=== PATIENT | female | born 1960 | race Caucasian/White ===

== ENCOUNTER 2018-03-28 09:16 | Emergency (ER) | payer OTHER ==
[~2018-03-28] VITALS: Ht 170.2 cm; Wt 103.4 kg
[~2018-03-28 09:16] MED LIST: ACID CONTROL150 MG PO; AVAPRO150 MG PO; FISH OIL 1,0001 EAC3 PO; MACROBID 100 M100 MG PO; OMEPRAZOLE20 M1 PO; VITAMIN D2000 UNIT PO
[2018-03-28] MEDS ORDERED: METOPROLOL SUCC50 MG PO (10:32)
[2018-03-28] MEDS ORDERED: TIROSINT50 MCG PO (10:32)
[2018-03-28] MEDS ORDERED: ULTRAM50 MG PO (13:35)
[2018-03-28] MEDS ORDERED: CYCLOBENZAPRINE5 MG PO (13:35)
== END 2018-03-28 14:10 | disposition home or self-care (01) ==
LOC: ED 09:16
DX: K44.9 Diaphragmatic hernia without obstruction or gangrene (principal); I10 Essential (primary) hypertension; Z85.3 Personal history of malignant neoplasm of breast; Z88.0 Allergy status to penicillin; Z88.2 Allergy status to sulfonamides; Z88.1 Allergy status to other antibiotic agents; Z79.899 Other long term (current) drug therapy
CPT/HCPCS: 74177; 80053; 81001; 83690; 85025; 96361; 96374; 96375; 99284-25; J1885; J2405; J7030; Q9967

== ENCOUNTER 2020-12-30 07:06 | Day surgery (SDC) | payer OTHER ==
[~2020-12-30] VITALS: Ht 170.2 cm; Wt 107.8 kg
[~2020-12-30 07:06] MED LIST changes: +ASHWAGANDHA RO300 MG PO; +CHOLINE SR300 MG PO; +CYCLOBENZAPRINE5 MG PO; +GREEN TEA1 EACH PO; +L-METHYL-B6-B11 EACH PO; +METOPROLOL SUCC50 MG PO; +OSTERA TABLET1 EACH PO; +PROBIOTIC 5 BI1 EACH PO; +SUPER ANTIOXID1 EACH PO; +TIROSINT50 MCG PO; +TURMERIC500 M2 PO; +TYLENOL EXTRA500 MG PO; +ULTRAM50 MG PO; +WAL-ZYR10 MG PO; +[UNRECOGNIZED DRUG - OTHER]; +[UNRECOGNIZED DRUG - OTHER] PO; +[UNRECOGNIZED DRUG - OTHER] PO
--- NOTE | 2020-12-30 09:38 | NUR ---
12/30/20 0938 Mary Harper 0976-PATIENT ARRIVED TO PACU ON 6L MASK RR EVEN. PATIENT REACTIVE TO VERBAL STIMULI FOLLOWS COMMANDS DENIES PAIN OR NAUSEA. INCISION TO NOSE CDI. 6L MASK RR EVEN ENCOURAGED DEEP BREATHES. SR.
--- NOTE | 2020-12-30 10:17 | NUR ---
PT RETURNS DO DAY SURGERY. COMPLAINING OF 4-5/10 SURGICAL SITE PAIN. DENIES NAUSEA. DISCUSSED PT STATUS WITH MD AND OBTAINED NEW ORDERS FOR PAIN MEDICATION.
--- NOTE | 2020-12-30 15:12 | EKG ---
[facility] [address] [facility] [place], [place] [address] Signed Normal sinus rhythm Minimal voltage criteria for LVH, may be normal variant Borderline ECG When compared with ECG of 23-JAN-2016 11:00, No significant change was found Confirmed by TOMMIE GARSIA DO ([id number]) on 12/30/2020 3:12:44 PM Electronically Signed By: TOMMIE GARSIA DO 12/30/20 1512 PATIENT NAME: JOHN COYLE Electrocardiogram DATE OF : 60 PHYSICIAN: TOMMIE GARSIA DO REPORT #: [id number] REPORT IS CONFIDENTIAL AND NOT TO BE RELEASED WITHOUT AUTHORIZATION
--- NOTE | 2021-01-06 15:38 | OR ---
[facility] [address] [place], [place] [address] Signed DATE OF OPERATION: 12/30/2020 SURGEON: Yevgeniy Felix MD PREOPERATIVE DIAGNOSIS: Left facial lesion. POSTOPERATIVE DIAGNOSIS: Left facial lesion. PROCEDURE: Excision of left facial lesion. ANESTHESIA: General LMA. Samuel NAIR. PREOPERATIVE HISTORY: John is a 60-year-old lady with a left facial lesion, nodule on the left side of her nose, this was excised several months ago, benign pathology, but has recurred actually areas somewhat superior to the initial lesion. Then, she is taken to the operating for the above-mentioned procedures. OPERATIVE PROCEDURE AND FINDINGS: After informed consent, the patient was taken to the operating room, placed in the supine position where general LMA anesthesia was induced. The patient and procedure were verified. Left face was sterilely prepped and draped. The lesion had been marked preop. The lesion in question was about 5 mm firm nodule on the left side of the nose just about 2 cm inferior to the medial canthus. After sterile prep and drape, 1% lidocaine with epi was injected and skin overlying the lesion and incision was made. Sharp and blunt dissection carried down to the lesion in question, it was a purplish, appeared to be somewhat cystic multilocular lesion very closely adherent to the nasal bone. The lesion was completely removed, sent to pathology in formalin. Hemostasis was obtained with needle point cautery. The field was dry after the procedure. The incision was then closed with 5-0 Vicryl subcu and 5-0 nylon running in the skin. The skin was prepped with Neosporin ointment. The patient was then awakened, extubated, transported to the recovery room in good condition. No complications. BLOOD LOSS: Minimal. Electronically Signed By: YEVGENIY FELIX MD 01/06/21 1538 PATIENT NAME: JOHN COYLE OPERATIVE REPORT DATE OF : 60 REPORT #: [id number] PHYSICIAN: YEVGENIY FELIX MD PCP: JODI AMBRIZ MD REPORT IS CONFIDENTIAL AND NOT TO BE RELEASED WITHOUT AUTHORIZATION [address] [place], [place] [address] Signed DRAINS: No drains. SPECIMEN: To pathology. Yevgeniy Felix MD GC/MODL /[id number] Copies: ~ Electronically Signed By: YEVGENIY FELIX MD 01/06/21 1538 PATIENT NAME: JOHN COYLE OPERATIVE REPORT DATE OF : 60 REPORT #: [id number] PHYSICIAN: YEVGENIY FELIX MD PCP: JODI AMBRIZ MD REPORT IS CONFIDENTIAL AND NOT TO BE RELEASED WITHOUT AUTHORIZATION
== END 2020-12-30 11:13 | disposition home or self-care (01) ==
LOC: OPS 07:06 → DS 07:06 → OPS 09:00 → DS 09:00 → OPS 11:13
PROVIDERS: ATTEND Otolaryngology
PROC: 0HB1XZZ Excision of Face Skin, External Approach (ICD-10-PCS; principal; 2020-12-30 09:00)
DX: L98.0 Pyogenic granuloma (principal); I10 Essential (primary) hypertension; E03.9 Hypothyroidism, unspecified; J44.9 Chronic obstructive pulmonary disease, unspecified; Z88.1 Allergy status to other antibiotic agents; Z88.0 Allergy status to penicillin; Z88.2 Allergy status to sulfonamides; Z85.3 Personal history of malignant neoplasm of breast; Z86.69 Personal history of other diseases of the nervous system and sense organs
CPT/HCPCS: 00300; 88305; 93005; 93010; J1100; J2001; J2405; J2704; J3010; J7121

== ENCOUNTER 2022-03-17 00:09 | Emergency (ER) | payer OTHER ==
[~2022-03-17] VITALS: Ht 170.2 cm; Wt 105.0 kg
[~2022-03-17 00:09] MED LIST changes: +CLEOCIN HCL300 MG PO; +HYDROCODON-ACE1 EA10 PO; +XARELTO20 MG PO
[2022-03-17] MEDS ORDERED: XARELTO20 MG PO ×2 (01:32→01:33)
[2022-03-17] MEDS ORDERED: PERCOCET 5-3251 EACH PO (02:04)
== END 2022-03-17 02:48 | disposition home or self-care (01) ==
LOC: ED 00:09
DX: G89.18 Other acute postprocedural pain (principal); I10 Essential (primary) hypertension; Z88.0 Allergy status to penicillin; Z88.1 Allergy status to other antibiotic agents; Z88.2 Allergy status to sulfonamides; Z79.899 Other long term (current) drug therapy
CPT/HCPCS: 36415; 80053; 85025; 99283-25

== ENCOUNTER 2024-06-12 07:00 | Day surgery (SDC) | payer OTHER ==
[2024-06-05 13:30] VITALS: BP 149/89
[~2024-06-12] VITALS: Ht 170.2 cm; Wt 109.1 kg
[~2024-06-12 07:00] MED LIST changes: +CLINDAMYCIN PHOSPHATE/D5W 600 MG/50 ML PIGGYBACK IV SCH; +CYCLOBENZAPRINE10 MG PO; +IBLOOD GLUCOSE TEST STRIP 1 EA TEST VI PRN; +LACTATED RINGER'S 1,000 ML IV SCH; +LIDOCAINE 1% W/ EPI 1:100,000 20 ML MDV ONE; +LIDOCAINE HCL 1% 5 ML SDV INJ ONE; +OXYMETAZOLINE HCL 30 ML BTL NAS SCH; +PERCOCET 5-3251 EACH PO; +XARELTO10 MG PO
[2024-06-12 07:23] VITALS: BP 148/64
[2024-06-12] MEDS ORDERED: ondansetron HCL 4 MG/2 ML VIAL ONE (07:42)
[2024-06-12] MEDS ORDERED: LIDOCAINE HCL 2% 5 ML SDV ONE (07:42)
[2024-06-12] MEDS ORDERED: DEXAMETHASONE SOD PHOS 4 MG/ML VIAL ONE (07:42)
[2024-06-12] MEDS ORDERED: ACETAMINOPHEN 1,000 MG/100 ML VIAL ONE (07:42)
[2024-06-12] MEDS ORDERED: fentaNYL citrate 100 MCG/2 ML VIAL ONE (07:42)
[2024-06-12] MEDS ORDERED: propofoL 200 MG/20 ML VIAL ONE (07:42)
--- NOTE | 2024-06-12 07:53 | NUR ---
VISITED DURING SPIRITUAL CARE ROUNDS. PT IN OVERALL GOOD SPIRITS, NO IMMEDIATE NEEDS. ACCOUNT ADVISOR PROVIDED SUPPORTIVE PRESENCE, HOSPITALITY, PRAYER, FACILTIATED INTERACTION WITH THERAPY ANIMAL. PT EXPRESSED GRATITUDE, PEACE.
[2024-06-12] MEDS ORDERED: droPERidol 5 MG/2 ML VIAL IV PRN (09:00)
[2024-06-12] MEDS ORDERED: fentaNYL citrate 50 MCG/ML SDV IV PRN (09:00)
[2024-06-12] MEDS ORDERED: IBLOOD GLUCOSE TEST STRIP 1 EA TEST VI PRN (09:00)
[2024-06-12] MEDS ORDERED: HYDROmorphone HCL 1 MG/ML SYR IV PRN (09:00)
[2024-06-12] MEDS ORDERED: NALOXONE HCL 0.4 MG SYR IV PRN (09:00)
[2024-06-12] MEDS ORDERED: ondansetron HCL 4 MG/2 ML VIAL IV PRN (09:00)
[2024-06-12] MEDS ORDERED: PROCHLORPERAZINE EDISYLATE 10 MG/2 ML VIAL IV PRN (09:00)
--- NOTE | 2024-06-12 09:25 | NUR ---
06/12/24 0925 Ciarra Floyd 0858 PT ARRIVED IN PACU NON RESPONSIVE TO NOXIOUS STIMULI WITH OPA IN PLACE. 902 PT REACTIVE. OPA REMOVED. 909 C/O SINUS PAIN /. DECLINED PAIN MEDICATION AT THIS TIME. 920 C/O SINUS PAIN 06/14. FENTANYL 50MCG GIVEN IV. 924 TAKING SMALL SIPS OF WATER.
--- NOTE | 2024-06-12 09:26 | NUR ---
PT ARRIVES TO DS DEPARTMENT FROM PACU VIA STRETCHER. PT IS A&O AND ASKING QUESTIONS APPROPRIATELY. PT STATES PAIN IS 3/10 BUT CREEPING HIGHER. PT REPORTS NO NAUSEA/DIZZINESS AT THIS TIME. PT TOLERATING SMALL SIPS OF ICE WATER WITHOUT DIFFICULTY. CALL LIGHT WITHIN REACH. PT STATES NO FURTHER NEEDS OR QUESTIONS AT THIS TIME.
[2024-06-12] MEDS ORDERED: HYDROCODONE/ACETA 5/325 TAB PO PRN (09:30)
[2024-06-12 09:37] VITALS: BP 188/96
--- NOTE | 2024-06-12 09:50 | NUR ---
PT STATES URGE TO URINE VOID. PT UP AT BEDSIDE AND REPORTS NO INCREASE IN NAUSEA/DIZZINESS. PT TO RESTROOM, GAIT IS STEADY, THIS RN STANDBY ASSIST. PT URINE VOIDS 350 ML OF CLEAR/YELLOW URINE. PT BACK TO ROOM AT THIS TIME AND EATING PUDDING, CRACKERS, WATER. PT REPORTS NO FURTHER NEEDS OR QUESTIONS AT THIS TIME, CALL LIGHT WITHIN REACH.
--- NOTE | 2024-06-12 10:20 | NUR ---
IN PT ROOM FOR PAIN COUNSELOR SUPERVISOR, PT TOLERATES ALL FOOD WITHOUT ONSET OF NAUSEA. CALL LIGHT WITHIN REACH, PT STATES NO FURTHER NEEDS OR QUESTIONS AT THIS TIME.
--- NOTE | 2024-06-12 10:45 | NUR ---
PT UP TO RESTROOM. THIS RN STANDBY ASSIST. PT GAIT STEADY AND PT STATES NO DIZZINESS OR NAUSEA. PT BACK TO ROOM AT THIS TIME.
[2024-06-12 10:51] VITALS: BP 182/81
--- NOTE | 2024-06-12 11:10 | OR ---
[facility] [address] [place], [place] [address] Signed DATE OF OPERATION: 06/12/2024 SURGEON: Yevgeniy Pacheco MD PREOPERATIVE DIAGNOSIS: Inferior turbinate hypertrophy causing nasal obstruction. POSTOPERATIVE DIAGNOSIS: Inferior turbinate hypertrophy causing nasal obstruction. PROCEDURE: Bilateral inferior turbinate cautery, transmucosal. ANESTHESIA: General, LMA; CONTINUOUS MINER, Samuel. PREOPERATIVE HISTORY: John is a 64-year-old lady with chronic nasal obstruction, unresponsive to appropriate medications. Exam in the office had shown inferior turbinate hypertrophy and she was taken to the operating room for the above-mentioned procedures. OPERATIVE PROCEDURE AND FINDINGS: After informed consent, the patient was taken to the operating room, placed in the supine position where general LMA anesthesia was induced. The patient and procedure were verified. The patient received preoperative intranasal oxymetazoline. Headlight speculum exam of the nasal cavity showed decongestion of the inferior turbinates, but still partially obstructive hypertrophic. The left and inferior turbinate was cauterized with a long handle needle point cautery. Multiple transmucosal passes on the medial and inferior surface starting anteriorly extending all the way back posteriorly, excellent shrinkage of the turbinate. Improvement in the airway was obtained in this manner. Hemostasis verified. The same procedure on the right inferior turbinate, packing was then placed, one piece each side trimmed, Merocel equal amount, coated with Neosporin, tied anteriorly over a pad. The pharynx was suctioned clear of blood and secretions. The patient was then awakened, extubated, transported to recovery room in good condition. No complications. BLOOD LOSS: Minimal. SPECIMEN: Electronically Signed By: YEVGENIY PACHECO MD 06/12/24 1110 PATIENT NAME: JOHN COYLE OPERATIVE REPORT DATE OF : 60 REPORT #: [id number] PHYSICIAN: YEVGENIY PACHECO MD PCP: MAGDA VENTURA MD REPORT IS CONFIDENTIAL AND NOT TO BE RELEASED WITHOUT AUTHORIZATION [facility] [address] [place] [address], [place] [address] Signed None. DRAINS: None. PACKING: One piece of Merocel in each nostril. Yevgeniy Pacheco MD GC/MODL /[id number] Copies: ~ Electronically Signed By: YEVGENIY PACHECO MD 06/12/24 1110 PATIENT NAME: JOHN COYLE OPERATIVE REPORT DATE OF : 60 REPORT #: [id number] PHYSICIAN: YEVGENIY PACHECO MD PCP: MAGDA VENTURA MD REPORT IS CONFIDENTIAL AND NOT TO BE RELEASED WITHOUT AUTHORIZATION
--- NOTE | 2024-06-12 11:20 | NUR ---
IN PT ROOM FOR VS AND ASSESSMENT. NO ACUTE CHANGES FROM PREVIOUS ASSESSMENT. PT ENCOURAGED TO FOLLOW UP W/PCP REGARDING BLOOD PRESSURE ELEVATION. PT STATES VERBAL UNDERSTANDING AND THAT SHE THINKS SHE NEEDS SOME CHANGES IN HER BP MEDS. PT STATES NO CHEST PAIN, DIZZINESS, OR SOB. PT GETTING DRESSED AT THIS TIME AND CALLED FOR RIDE. CALL LIGHT WITHIN REACH. PT STATES NO FURTHER NEEDS OR QUESTIONS AT THIS TIME.
[2024-06-12 11:25] VITALS: BP 167/89
--- NOTE | 2024-06-12 11:45 | NUR ---
IN PT ROOM FOR DC EDUCATION. PT STATES VERBAL UNDERSTANDING AND STATES NO FURTHER QUESTIONS OR NEEDS AT THIS TIME. PT OFF OF UNIT VIA WC TO PASSENGER SIDE OF VEHICLE. ALL BELONGINGS IN PT POSSESSION AT THIS TIME. SUPPLIES PROVIDED FOR DRIP PAD APPLICATION AT HOME, PT STATES VERBAL UNDERSTANDING TO DEMONSTRATION AT THIS TIME.
[2024-06-12] MEDS ORDERED: SEVOFLURANE 250 ML BTL INH ONE (16:28)
== END 2024-06-12 11:50 | disposition home or self-care (01) ==
LOC: OPS 07:00 → DS 07:00 → OPS 08:30 → DS 08:30 → OPS 11:50
PROVIDERS: ATTEND Otolaryngology
PROC: 095L7ZZ Destruction of Nasal Turbinate, Via Natural or Artificial Opening (ICD-10-PCS; principal; 2024-06-12 08:30)
DX: J34.3 Hypertrophy of nasal turbinates (principal); Z88.1 Allergy status to other antibiotic agents; Z88.0 Allergy status to penicillin; Z88.2 Allergy status to sulfonamides; Z86.718 Personal history of other venous thrombosis and embolism; Z79.01 Long term (current) use of anticoagulants
CPT/HCPCS: 00160; J0131; J1100; J2003; J2405; J2704; J3010; J7121